=== PATIENT | female | born 1980 | race Native Hawaiian/Other Pacific Islander ===

== ENCOUNTER 2019-09-17 08:09 | Emergency (ER) | payer OTHER ==
[~2019-09-17] VITALS: Ht 165.1 cm; Wt 150.1 kg
[2019-09-17 08:13] VITALS: TEMP 98
[2019-09-17 10:40] VITALS: BP 133/60
== END 2019-09-17 10:40 | disposition home or self-care (01) ==
LOC: ED 08:09
DX: M54.5 Low back pain (principal); M62.830 Muscle spasm of back
CPT/HCPCS: 96372; 99283; J1885; J2930

== ENCOUNTER 2020-04-15 12:54 | Outpatient (CLI) | payer OTHER ==
[2020-04-15 13:27] LABS: PLATELET COUNT 399 K/uL (152-353)
[2020-04-15 13:50] LABS: POTASSIUM 4.4 mmol/L (3.6-5.2)
== END 2020-04-15 21:45 | disposition home or self-care (01) ==
LOC: LABW 12:54
PROVIDERS: ATTEND Surgery
DX: E63.8 Other specified nutritional deficiencies (principal); K90.89 Other intestinal malabsorption; R53.1 Weakness; E55.9 Vitamin D deficiency, unspecified
CPT/HCPCS: 36415; 80053; 82306; 82607; 82728; 82747; 83540; 83550; 84207; 84425; 85027

== ENCOUNTER 2020-04-22 13:53 | Outpatient (CLI) | payer OTHER | END 2020-04-22 19:44 | disposition home or self-care (01) | LOC: US 13:53 | PROVIDERS: ATTEND Nurse Practitioner Family | DX: N93.8 Other specified abnormal uterine and vaginal bleeding (principal) ==

== ENCOUNTER 2020-09-04 06:50 | Emergency (ER) | payer OTHER ==
[~2020-09-04] VITALS: Ht 165.1 cm; Wt 108.0 kg
[2020-09-04 07:00] VITALS: TEMP 98.8
[2020-09-04 07:26] LABS: PLATELET COUNT 375 K/uL (152-353)
[2020-09-04 07:34] LABS: POTASSIUM 4.1 mmol/L (3.6-5.2)
[2020-09-04 07:46] LABS: PARTIAL THROMBOPLASTIN TIME 24.5 SECONDS (24.5-33.6)
[2020-09-04 11:28] VITALS: BP 112/69
== END 2020-09-04 11:28 | disposition home or self-care (01) ==
LOC: ED 06:50
PROVIDERS: Hospitalist
DX: N99.820 Postprocedural hemorrhage of a genitourinary system organ or structure following a genitourinary system procedure (principal)
CPT/HCPCS: 36415; 80053; 85027; 85610; 85730; 96360; 96375; 99284; J2405; Q9963

== ENCOUNTER 2020-09-20 15:45 | Outpatient (CLI) | payer OTHER | END 2020-09-20 20:32 | disposition home or self-care (01) | LOC: RAD 15:45 | PROVIDERS: ATTEND Nurse Practitioner Family | DX: M06.4 Inflammatory polyarthropathy (principal); M54.5 Low back pain; Z68.41 Body mass index [BMI] 40.0-44.9, adult ==

== ENCOUNTER 2021-06-08 14:50 | Outpatient (CLI) | payer OTHER | END 2021-06-08 19:07 | disposition home or self-care (01) | LOC: RESP 14:50 | PROVIDERS: ATTEND Nurse Practitioner Family | DX: I45.81 Long QT syndrome (principal) | CPT/HCPCS: 93225 ==

== ENCOUNTER 2021-06-24 10:29 | Outpatient (CLI) | payer OTHER | END 2021-06-24 20:40 | disposition home or self-care (01) | LOC: RESP 10:29 | PROVIDERS: ATTEND Nurse Practitioner Family | DX: I45.81 Long QT syndrome (principal); Z79.899 Other long term (current) drug therapy ==

== ENCOUNTER 2021-08-13 03:10 | Emergency (ER) | payer OTHER ==
[~2021-08-13] VITALS: Ht 165.1 cm; Wt 108.0 kg
[2021-08-13 03:15] VITALS: TEMP 98
[2021-08-13 04:11] LABS: PLATELET COUNT 551 K/uL (152-353)
[2021-08-13 06:49] VITALS: BP 117/84
== END 2021-08-13 07:01 | disposition home or self-care (01) ==
LOC: ED 03:10
PROVIDERS: Emergency Medicine
DX: R10.13 Epigastric pain (principal); Z98.84 Bariatric surgery status; Z20.822 Contact with and (suspected) exposure to COVID-19; M54.2 Cervicalgia
CPT/HCPCS: 80053; 80307; 81000; 85027; 87635; 96360; 96374; 96375; 96376; 99284; J1170; J2405; Q9963; U0003

== ENCOUNTER 2021-10-10 11:44 | Emergency (ER) | payer OTHER ==
[~2021-10-10] VITALS: Ht 165.1 cm; Wt 103.9 kg
[2021-10-10 11:50] VITALS: TEMP 97.4
[2021-10-10 12:49] VITALS: BP 138/80
== END 2021-10-10 12:50 | disposition home or self-care (01) ==
LOC: ED 11:44
DX: N39.0 Urinary tract infection, site not specified (principal)
CPT/HCPCS: 81002; 81015; 81025; 96372; 99283; J0696

== ENCOUNTER 2021-12-24 12:29 | Outpatient (CLI) | payer OTHER ==
[2021-12-24 12:57] LABS: PLATELET COUNT 315 K/uL (152-353)
== END 2021-12-24 22:23 | disposition home or self-care (01) ==
LOC: LABW 12:29
DX: E55.9 Vitamin D deficiency, unspecified (principal); E63.9 Nutritional deficiency, unspecified; R53.1 Weakness; K90.89 Other intestinal malabsorption; Z79.899 Other long term (current) drug therapy
CPT/HCPCS: 36415; 80053; 82306; 82607; 82728; 82747; 83036; 83540; 83550; 84207; 84425; 85027

== ENCOUNTER 2022-05-03 09:44 | Outpatient (CLI) | payer OTHER | END 2022-05-03 19:32 | disposition home or self-care (01) | LOC: MAMMO 09:44 | PROVIDERS: ATTEND Nurse Practitioner Family | DX: Z12.31 Encounter for screening mammogram for malignant neoplasm of breast (principal) ==

== ENCOUNTER 2022-06-28 12:48 | Outpatient (CLI) | payer OTHER | END 2022-06-28 19:14 | disposition home or self-care (01) | LOC: LABW 12:48 | PROVIDERS: ATTEND Plastic Surgery | DX: Z01.818 Encounter for other preprocedural examination (principal); Z87.891 Personal history of nicotine dependence; Z09 Encounter for follow-up examination after completed treatment for conditions other than malignant neoplasm | CPT/HCPCS: 80307; G0431 ==

== ENCOUNTER 2022-07-06 14:22 | Outpatient (CLI) | payer OTHER ==
[2022-07-06 14:37] LABS: PLATELET COUNT 331 K/uL (152-353)
[2022-07-06 14:42] LABS: POTASSIUM 4.1 mmol/L (3.6-5.2)
== END 2022-07-06 19:28 | disposition home or self-care (01) ==
LOC: LABW 14:22
PROVIDERS: ATTEND Plastic Surgery
DX: Z01.812 Encounter for preprocedural laboratory examination (principal); Z01.818 Encounter for other preprocedural examination; Z01.811 Encounter for preprocedural respiratory examination; Z01.810 Encounter for preprocedural cardiovascular examination
CPT/HCPCS: 36415; 80048; 85027; 93005

== ENCOUNTER 2022-08-09 10:29 | Outpatient (CLI) | payer OTHER ==
[2022-08-09 10:49] LABS: PLATELET COUNT 490 K/uL (152-353)
[2022-08-09 10:59] LABS: POTASSIUM 4.2 mmol/L (3.6-5.2)
== END 2022-08-09 19:22 | disposition home or self-care (01) ==
LOC: LAB 10:29
PROVIDERS: ATTEND Specialist
DX: L03.311 Cellulitis of abdominal wall (principal)
CPT/HCPCS: 80053; 82550; 85027; 86140

== ENCOUNTER 2022-08-29 08:53 | Outpatient (CLI) | payer OTHER | END 2022-08-29 18:53 | disposition home or self-care (01) | LOC: US 08:53 | PROVIDERS: ATTEND Nurse Practitioner Family | DX: R19.09 Other intra-abdominal and pelvic swelling, mass and lump (principal) ==